=== PATIENT | male | born 1990 | race African-American/Black ===

== ENCOUNTER 2016-09-04 10:08 | Inpatient (IN) ==
--- NOTE | 2016-09-04 10:19 | PROVIDER DOCUMENTATION ---
HPI-Cardiac General - General Chief Complaint: Extremity Pain Stated Complaint: POSS DVT Time Seen by Provider: 09/04/16 10:16 Source: patient Allergies/Adverse Reactions: Patient Allergies Allergy/AdvReac Type Severity Reaction Status Date / Time No Known Allergies Allergy Verified 09/04/16 07:44 Home Medications: Home Medication List Medication Instructions Recorded Confirmed Last Taken Type Warfarin Sodium [Coumadin] 5 mg PO DAILY #30 tablet 09/03/16 09/04/16 Unknown Rx - History of Present Illness-Cardiac Location: reports: other (LLE) Quality of Pain: reports: aching Severity in ED: mild Onset/Duration: other (PAIN TO LEFT CALF FOR 2 WEEKS) Context/Activities at Onset: reports: other ("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) Review of Systems - Adult - REVIEW OF SYSTEMS - ADULT Constitutional: reports: no symptoms reported Eyes: reports: no symptoms reported Ears, Nose, Mouth & Throat: reports: no symptoms reported Cardiovascular: reports: no symptoms reported Respiratory: reports: no symptoms reported Gastrointestinal: reports: no symptoms reported Genitourinary: reports: no symptoms reported Musculoskeletal: reports: see HPI Integumentary: reports: no symptoms reported Neurological: reports: no symptoms reported Psychiatric: reports: no symptoms reported Endocrine: reports: no symptoms reported Hematologic/Lymphatic: reports: no symptoms reported Allergic/Immunologic: reports: no symptoms reported All Other Systems: Reviewed and Negative Past History - Adult - PAST MEDICAL HISTORY-ADULT Review of Records: reports: Old Records Reviewed, Nursing Assessment Review, Medications Reviewed Major Childhood Illnesses: reports: denies history Cardiovascular: reports: denies history Respiratory: reports: denies history Gastrointestinal: reports: denies history Genitourinary: reports: denies history, retention Neurological: reports: denies history Psychiatric: reports: denies history Endocrine/Immune: reports: denies history Other Conditions: reports: denies history - PRIOR SURGERIES/PROCEDURES Surgical/Procedure History: reports: orthopedic (extremity) - IMMUNIZATION STATUS Childhood Immunizations: See Nurse Assessment Flu Vaccine: See Nurse Assessment - FAMILY HISTORY Family History: reviewed, not pertinent - SOCIAL HISTORY Smoking: less than 1 pack/day Provider spent 3-5 mins advising pt. on dangers of tobacco.: Discussed manners to quit use, and f/u contacts for add'l counseling. Substance Use: none/never Alcohol Use Frequency: never Living Situation: family Physical Exam-General - CONSTITUTIONAL General Appearance: appears well, alert - EYES Eyes: PERRL/EOMI, pink conjunctivae - HEAD, EARS, NOSE, MOUTH & THROAT HENMT: normocephalic/atraumatic, moist mucous membranes, normal ENT inspection - NECK Neck: non-tender - RESPIRATORY Respiratory: chest non-tender, lungs clear, normal breath sounds - CARDIOVASCULAR Cardiovascular: normal peripheral pulses Progress - PLAN OF CARE/RESULTS Progress/Plan/Lab Results: Vital Signs - 8 hr 09/04/16 10:11 Temperature 97.8 F Pulse Rate 116 H Respiratory Rate 18 Blood Pressure 130/71 O2 Sat by Pulse Oximetry 99 Orders Category Date Time Status Saline Loc NOW Care 09/04/16 11:41 Ordered CBC WITH ELECTRONIC DIFF [HEME] Stat Lab 09/04/16 11:41 Uncollected PT [PROTIME WITH INR] [COAG] Stat Lab 09/04/16 11:41 Uncollected PTT [COAG] Stat Lab 09/04/16 11:[address] FRANCOIS CALLS FROM [facility] TO REPORT PATIENT JUST LEFT THERE. PATIENT WAS SEEN 2 DAYS AGO AND DX WITH DVT LLE. DID NOT GET RX FILLED. PATIENT STATES, "THEY TOLD ME IT WAS 500 DOLLARS." DISCUSSED DVT WITH RISK OF PE AND SUDDEN . DISCUSSED HISTORY, PRESENTAITON AND FINDINGS WITH DR. GILL--WILL OBTAIN US REPORT FROM [facility] FOR EXACT LOCATION OF DVT ( [id number] DVT IN PERONEAL THROUGH THE DISTAL PPOPLITEAL VEIN--US REPORTS 09/03/16) AGAIN, DISCUSSED WITH DR. GILL--WILL CONSULT HOSPITALIST--DISCUSSED WITH [facility]--OPTIONS OF MANGEMENT BY PCP LOVENOX 1MG/KG BID UNTIL INR REACHES 2.5 --COUMADIN CLINC COUMADIN 5MG OR LOVENOX IF ABLE TO BE MANAGED BY PCP. DISCUSSED OPTIONS WITH PATIENT WHO HAS NO PCP AND STATES, "I WOULD JUST RATHER THEM PUT ME IN AND GET ALL OF THIS STRAIGHT." DISCUSSED WITH GEOTHERMAL SYSTEM INSTALLER WHO IS UNABLE TO GET PATIENT PCP AT THIS TIME. WILL ADMIT TO HOSPTALIST. Departure - Departure Date of Disposition Decision: 09/04/16 Time of Disposition Decision: 11:48 DIAGNOSIS: Deep vein thrombosis of left lower extremity Qualifiers: Affected thrombotic vein of extremity: popliteal Chronicity: acute Qualified Code(s): I82.432 - Acute embolism and thrombosis of left popliteal vein Disposition: ADMITTED INPATIENT 09 Certified Medical Emergency: Emergent Condition: Stable Referrals and Follow-Ups: None,PCP [Primary Care Provider] - - Critical Care Note This patient required my direct & personal management of CC.: No
[2016-09-04 12:09] LABS: MANUAL DIFF NEEDED? NO
[2016-09-04 12:16] LABS: BASO% 0.5 % (0.0-0.8); EOS% 7.1 % (0.0-10.0); HEMATOCRIT 41.5 % (42.0-52.0); HEMOGLOBIN 13.8 g/dL (14.0-18.0); LYMPH# 1.96 X1000 (1.2-3.4); LYMPH% 46.1 % (20.5-51.1); MCH 27.3 PG (27-31); MCHC 33.3 g/dL (33-37); MONO# 0.22 X1000 (0.11-0.59); MONO% 5.2 % (1.7-9.3); MPV 9.6 FL (7.4-10.4); NEUT% 41.1 % (42.2-75.2); PLT 169 X1000 (130-400); RBC 5.06 XMIL (4.7-6.1)
[2016-09-04 12:24] LABS: INR 1.05; PROTIME 11.1 Seconds (9.2-11.7); PTT 26.6 Seconds (22.0-36.0)
[2016-09-04] MEDS ORDERED: COUMADIN PO ONE (12:41)
[2016-09-04 12:42] LABS: AGAP 10; ALBUMIN 4.2 g/dL (3.5-5.0); ALKALINE PHOSPHATASE 73 U/L (32-122); BUN 8 mg/dL (8-22); CALCIUM 8.9 mg/dL (8.8-10.2); CHLORIDE 101 mmol/L (98-107); COSMO 269; GOT 16 U/L (10-34); GPT 18 U/L (10-44); POTASSIUM 4.1 mmol/L (3.5-5.1); SODIUM 136 mmol/L (136-145); TCO2 25 mmol/L (25-35); TOTAL BILIRUBIN 0.22 mg/dL (0.20-1.00); TOTAL PROTEIN 7.2 g/dL (6.3-8.3)
[2016-09-04] MEDS ORDERED: LOVENOX 1 MG/KG SUBQ SCH (12:45)
[2016-09-04] MEDS ORDERED: LOVENOX SUBQ ONE (12:45)
--- NOTE | 2016-09-04 15:00 | HISTORY AND PHYSICAL ---
PRIMARY CARE PHYSICIAN: None. CHIEF COMPLAINT: Left lower extremity pain. HISTORY OF PRESENT ILLNESS: Mr. Matos is a 24-year-old male with recent diagnosis of left lower extremity DVT. Since that time, which was approximately 3 or 4 days ago, heme was prescribed anticoagulation but has not taken it secondary to financial strain. He came back today for persistent pain. We worked with the ER and case management on getting the patient's medications for outpatient therapy however this was unable to be done so we will need to admit him for Coumadin with Lovenox bridging. He has no other complaints at this time. His labs and vitals are all stable. He is now going to be admitted for further treatment and evaluation. PAST MEDICAL HISTORY: 1. Recent diagnosis of DVT on the left lower extremity. 2. Nicotine dependence. SURGICAL HISTORY: Left clavicular ORIF. SOCIAL HISTORY: Patient smokes a half pack a day. 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 He denies drug use. He drinks occasionally. He has 1 child. FAMILY HISTORY: No significant history of DVT or PE. REVIEW OF SYSTEMS: Ten point review of systems is obtained and felt to be negative with the exception of the HPI. HOME MEDICATIONS: None. ALLERGIES: None. PHYSICAL EXAMINATION: VITAL SIGNS: Blood pressure is 111/63, heart rate 56, respiratory rate 18, O2 saturation 100% on room air. Temperature is 98.1 degrees. GENERAL: Well-developed well-nourished male, lying in hospital bed in no acute distress. NEUROLOGIC: The patient is awake, alert, and oriented. Follows commands without focal deficits. HEENT: Head atraumatic and normocephalic. His pupils are equal, round, reactive to light. Oral mucosa is moist. Trachea is midline. There is no JVD or carotid bruits. CHEST: Clear to auscultation bilaterally. CV: Regular rate and rhythm. S1, S2 is noted. No murmurs, gallops, clicks, rubs. GI: Soft, nondistended, nontender. Bowel sounds positive. EXTREMITIES: Left lower extremity with trace edema. The pulses are palpable bilaterally. DIAGNOSTIC DATA: WBC 4.25, hemoglobin 13.8, hematocrit 41.5 platelet count 169, 000. INR 1.05. Sodium 136, potassium 4.1, chloride 101, CO2 25, anion gap 10, BUN 8, creatinine 0.9, glucose 82, calcium 8.9, bilirubin 0.22. AST 16, ALT 18, alkaline phosphatase 73. Protein 7.2, albumin 4.2. ASSESSMENT/PLAN: 1. Left lower extremity DVT: Patient will be admitted for Coumadin Lovenox bridging. We will start Lovenox 1 mg/kg now and Coumadin at 7.5 mg p.o. every night. Will check INRs and basic labs daily and monitor telemetry. Patient denies any chest pain or shortness of breath. No hemoptysis. 2. Nicotine dependence: Patient has been advised to quit smoking. A nicotine patch has been prescribed. We will continue daily cessation education. 3. DVT prophylaxis with Lovenox. Further recommendations to follow. Dictated by JESS Vaughan for Tio Beltran MD cc: JESS Vaughan Addendum: I personally evaluated and examined the patient in conjunction to the PERFORMANCE MAKEUP ARTIST and agreed with his assessment and plan. My exam showed left calf tenderness. MTDD
[2016-09-04] MEDS ORDERED: NICODERM PATCH TD SCH (15:36)
[2016-09-05] MEDS: LOVENOX SUBQ SCH ×2 (01:04→14:10)
[2016-09-05 06:38] LABS: HEMATOCRIT 41.5 % (42.0-52.0); HEMOGLOBIN 13.6 g/dL (14.0-18.0); MCH 27.5 PG (27-31); MCHC 32.8 g/dL (33-37); MPV 9.9 FL (7.4-10.4); RBC 4.94 XMIL (4.7-6.1)
[2016-09-05 06:52] LABS: AGAP 12; BUN 8 mg/dL (8-22); CALCIUM 8.7 mg/dL (8.8-10.2); CHLORIDE 102 mmol/L (98-107); COSMO 274; POTASSIUM 4.1 mmol/L (3.5-5.1); SODIUM 138 mmol/L (136-145); TCO2 24 mmol/L (25-35)
[2016-09-05 06:54] LABS: INR 1.05; PROTIME 11.1 Seconds (9.2-11.7)
[2016-09-05] MEDS ORDERED: NICODERM PATCH TD SCH (09:00)
[2016-09-05 14:30] VITALS: BP 125/65
--- NOTE | 2016-09-05 15:32 | DISCHARGE SUMMARY ---
ADMISSION DATE: 09/04/2016 DISCHARGE DATE: 09/05/2016 CONSULTATIONS: None. PERTINENT PROCEDURES: None. DISCHARGE DIAGNOSES: 1. Left lower extremity deep venous thrombosis. The patient will continue with Lovenox bridging with Coumadin and follow up with his primary care physician for prothrombin times and international normalized ratios. 2. Nicotine dependence. The patient has been advised daily about smoking cessation as well as the means to quit. He is provided with a nicotine patch throughout his admission. HOSPITAL COURSE: Mr. Matos is a 24-year-old, male with a recent diagnosis of a left lower extremity DVT. Since that time, which was approximately 3 or 4 days ago, he was prescribed anticoagulation but he has not taken it secondary to financial strain. He came back for persistent pain. We worked with the ED as well as case management on getting the patient's medication for outpatient therapy. However this was unable to be done, so he was admitted for Coumadin with Lovenox bridging. He had no other complaints at the time of his admission. His labs and vital signs were stable. We did a Social Service consult. They were able to assist the patient with his medications, with the Lovenox as well as Coumadin. The patient is being discharged home today. Vital signs: Temperature is 98 degrees, heart rate 65 , respiration 20, blood pressure is 125/65, O2 is 99% on room air. DISCHARGE MEDICATIONS: 1. Lovenox 80 mg subcutaneous q.12 hours for 5 days. 2. Coumadin 5 mg p.o. daily. FOLLOWUP: The patient is being discharged home. He will come back for an INR check this coming Saturday as well as Saturday. The patient will also be provided with a list of primary care physicians that he will need to continue to follow with throughout the duration of his treatment. Patient can return to the ED for any worsening of symptoms. He has been educated to take all medication as prescribed. Again, [facility] has arranged for medication help. DISCHARGE TIME: Thirty minutes. Dictated by JESS Cardoza for Tio Beltran MD Addendum: I personally evaluated and examined the patient in conjunction to the SNOW SHOVELER and agreed with her disposition. See my PN for exam MTDD
[2016-09-05] MEDS ORDERED: COUMADIN PO SCH (21:00)
== END 2016-09-05 16:51 | disposition home or self-care (01) ==
LOC: ED 10:08 → 3N 20:20
PROVIDERS: ATTEND Internal Medicine